=== PATIENT | female | born 1990 | race Hispanic/Latino ===

== ENCOUNTER 2023-11-06 18:54 | Emergency (ER) | payer OTHER ==
[~2023-11-06] VITALS: Ht 157.5 cm; Wt 80.0 kg
[2023-11-06] MEDS ORDERED: PEPT262T2 PO (19:03)
[2023-11-06 19:57] LABS: HEMATOCRIT 37.3 % (36.0-47.0); HEMOGLOBIN 12.9 g/dl (12.0-15.5); MEAN CORPUSCULAR HGB CONC 34.6 g/dl (32.0-36.5); MEAN CORPUSCULAR VOLUME 86.7 fl (80.0-96.0); PLATELET COUNT, AUTOMATED 247 10^3/uL (150-450); WHITE BLOOD COUNT 4.3 10^3/uL (4.0-10.0)
[2023-11-06 20:33] LABS: HCG, SERUM QUALITATIVE NEGATIVE (NEGATIVE)
[2023-11-06 20:36] LABS: LIPASE 33 U/L (12-53)
[2023-11-06 20:39] LABS: ALBUMIN 3.7 G/DL (3.2-5.2); ALKALINE PHOSPHATASE 90 U/L (46-116); ALT/SGPT 56 U/L (7.0-40); AST/SGOT 39 U/L (<34); BILIRUBIN,DIRECT < 0.1 MG/DL (<0.4); BILIRUBIN,TOTAL 0.3 MG/DL (0.3-1.2); BLOOD UREA NITROGEN 6 MG/DL (9-23); CALCIUM LEVEL 8.5 MG/DL (8.5-10.1); CARBON DIOXIDE LEVEL 28 MMOL/L (20-31); CHLORIDE LEVEL 104 MMOL/L (98-107); CREATININE FOR GFR 0.63 MG/DL (0.55-1.30); GLOMERULAR FILTRATION RATE > 60.0 (>60); GLUCOSE, FASTING 85 MG/DL (60-100); POTASSIUM SERUM 3.5 MMOL/L (3.5-5.1); SODIUM LEVEL 140 MMOL/L (136-145); TOTAL PROTEIN 6.9 G/DL (5.7-8.2)
[2023-11-06] MEDS: FAMOTIDINE 20MG/2ML VIAL IVP ONE (20:42)
[2023-11-06] MEDS: NS 1,000 ML IV ONE (20:42)
[2023-11-06] MEDS: ONDANSETRON 4MG 2ML VIAL IV ONE (20:42)
[2023-11-06 20:51] LABS: ATYPICAL LYMPH 30 % (0-5); EOSINOPHILS 1 % (0-3); LYMPHOCYTES 28 % (16-44); MONOCYTES 4 % (0-5); NEUTROPHILS 34 % (28-66); PLATELET ESTIMATE NORMAL (NORMAL)
[2023-11-06 21:37] LABS: MONO REFLEX EBV COMP NEGATIVE (NEGATIVE)
[2023-11-06] MEDS ORDERED: ONDA4TAB6 PO (22:59)
[2023-11-06 23:08] VITALS: BP 134/78; TEMP 97.9; O2SAT 99
[2023-11-08 14:09] LABS: EBV VIRAL CAPSID AG IgG >600.0 U/mL (0.0-17.9); EBV VIRAL CAPSID AG IgM <36.0 U/mL (0.0-35.9)
== END 2023-11-06 23:11 | disposition home or self-care (01) ==
LOC: M ED 18:54
DX: R10.11 Right upper quadrant pain (principal); R10.12 Left upper quadrant pain; Z79.899 Other long term (current) drug therapy
CPT/HCPCS: 76705; 80048; 80076; 81001; 83690; 84703; 85025; 86308; 86664; 86665; 87486; 87581; 87633; 87798; 96361; 96374; 99283; J2405; S0028